=== PATIENT | female | born 2000 | race African-American/Black ===

== ENCOUNTER 2023-08-26 17:45 | Emergency (ER) | payer OTHER, SELFPAY ==
[2023-08-26 18:22] LABS: Bilirubin Neg (Negative); Blood, Urine Negative (Negative); Clarity Cloudy (Clear); Glucose, Urine (Dipstick) Normal (Negative); Ketone, Urine 5 mg/dL (Negative); Leukocyte 25 (Negative); Nitrite Positive (Negative); Protein, Urine (Dipstick) 30 mg/dl (Neg-Trace); pH, Urine 6.5 (5.0-9.0)
[2023-08-26 18:24] LABS: Pregnancy Test - Urine (BHCG) Negative (Negative); Pregu Control Background? CLEAR/WHITE (CLR/WHITE); Pregu Control Bar Appear? YES (CONTROL BAR)
[2023-08-26] MEDS ORDERED: Acetaminophen 500 MG TAB ONE (18:26)
[2023-08-26 18:32] LABS: Bacteria/HPF 3+ HPF (None Seen); CAUTI Indications for Culture Pelvic or flank pain
[2023-08-26 18:33] LABS: RBC/HPF 0-3 HPF (0-3)
[2023-08-26 18:34] LABS: Urine Culture Reflex Yes Yes
== END 2023-08-26 18:58 | disposition home or self-care (01) ==
LOC: CSHERS 17:45
DX: N39.0 Urinary tract infection, site not specified (principal); Z55.6 Problems related to health literacy
CPT/HCPCS: 81001; 81025; 87077; 87086; 87186; 99284